=== PATIENT | female | born 1960 | race Caucasian/White ===

== ENCOUNTER → 2017-02-14 | Outpatient (CLI) | payer BC ==
[~2017-02-14] MED LIST: BENAZEPRIL20 MG PO; HCTZ; SYNTHROID PO
== END ==
LOC: MC.RAD 16:51
DX: Z12.31 Encounter for screening mammogram for malignant neoplasm of breast (principal)

== ENCOUNTER → 2018-03-20 | Outpatient (CLI) | payer BC ==
[~2018-03-20] MED LIST changes: +CENTRUM SILVER1 CTB PO; +DITROPAN XL10 MG PO; +GLUCOSAMINE & C1 CA2 PO; +LOTENSIN HCT 201 TAB PO; +MAG-OX 400400 MG/TAB PO; +MOTRIN 800800 MG/TAB PO; +PERCOCET 325 MG1 TA2 PO; +PROVERA 10MG10 MG PO; +SYNTHROID 0.10.15 MG PO
== END ==
LOC: MC.RAD 11:17
DX: Z12.31 Encounter for screening mammogram for malignant neoplasm of breast (principal)

== ENCOUNTER 2018-09-13 11:11 | Emergency (ER) | payer BC ==
[~2018-09-13] VITALS: Ht 170.2 cm; Wt 102.3 kg
[2018-09-13 11:15] VITALS: BP 157/78; PULSE 79; TEMP 98.7
== END 2018-09-13 12:38 | disposition home or self-care (01) ==
LOC: COL.ER 11:11
DX: S63.616A Unspecified sprain of right little finger, initial encounter (principal); S80.02XA Contusion of left knee, initial encounter; S00.83XA Contusion of other part of head, initial encounter; S60.221A Contusion of right hand, initial encounter; Z98.890 Other specified postprocedural states; W01.0XXA Fall on same level from slipping, tripping and stumbling without subsequent striking against object, initial encounter; Y92.59 Other trade areas as the place of occurrence of the external cause

== ENCOUNTER 2019-09-19 09:31 | Day surgery (SDC) | payer BC ==
[~2019-09-19] VITALS: Ht 170.2 cm; Wt 99.9 kg
[~2019-09-19 09:31] MED LIST changes: -MAG-OX 400400 MG/TAB PO; +MAGNESIUM250 M1 PO
[2019-09-19 10:00] VITALS: BP 121/76; PULSE 65; TEMP 97.6
[2019-09-19] MEDS ORDERED: VALTREX1 GM PO (10:25)
[2019-09-19 12:12] VITALS: BP 107/64; PULSE 68; TEMP 97.6
--- NOTE | 2019-09-19 12:12 | NUR ---
Pt to [facility] via cart from ENDO. Pt awake and alert. Pt ambulated to recliner with stand by assistance. Warm blankets placed on pt. VSS. in room. Muffin and juice given. Will continue to monitor. Call light within reach.
[2019-09-19 12:27] VITALS: BP 121/67; PULSE 63
--- NOTE | 2019-09-19 12:27 | NUR ---
Pt tolerating food and fluids without difficulties. Denies needs. Call light within reach.
[2019-09-19 12:42] VITALS: BP 110/62; PULSE 65
--- NOTE | 2019-09-19 12:42 | NUR ---
Discharge instructions reviewed. Pt voices understanding. IV site discontinued with all parts intact. Pt up to dress. Call light within reach.
--- NOTE | 2019-09-19 12:55 | NUR ---
Pt escorted to private car via wheel chair. Pt accompanied home by her .
== END 2019-09-19 12:55 | disposition home or self-care (01) ==
LOC: SDCO 09:31
DX: Z12.11 Encounter for screening for malignant neoplasm of colon (principal); I10 Essential (primary) hypertension; E66.9 Obesity, unspecified; G47.33 Obstructive sleep apnea (adult) (pediatric); E03.9 Hypothyroidism, unspecified; M17.11 Unilateral primary osteoarthritis, right knee; M18.12 Unilateral primary osteoarthritis of first carpometacarpal joint, left hand; Z90.710 Acquired absence of both cervix and uterus; Z90.79 Acquired absence of other genital organ(s); Z90.722 Acquired absence of ovaries, bilateral; Z83.3 Family history of diabetes mellitus; Z82.49 Family history of ischemic heart disease and other diseases of the circulatory system; Z87.891 Personal history of nicotine dependence
CPT/HCPCS: J2704; J7030

== ENCOUNTER → 2020-04-06 | Outpatient (CLI) | payer BC ==
[~2020-04-06] MED LIST changes: +VALTREX1 GM PO
== END ==
LOC: MC.RAD 16:34
DX: Z12.31 Encounter for screening mammogram for malignant neoplasm of breast (principal)

== ENCOUNTER → 2021-04-30 | Outpatient (CLI) | payer BC | LOC: MC.RAD 07:30 | DX: Z12.31 Encounter for screening mammogram for malignant neoplasm of breast (principal) ==